=== PATIENT | male | born 1995 | race Caucasian/White ===

== ENCOUNTER 2021-09-21 07:44 | Emergency (ER) | payer MEDICAID ==
[~2021-09-21] VITALS: Ht 185.4 cm; Wt 90.9 kg
[2021-09-21 07:46] VITALS: BP 123/84
[2021-09-21] MEDS ORDERED: NAPR-56 PO (09:33)
[2021-09-21] MEDS ORDERED: ACET-1131 PO (09:33)
== END 2021-09-21 09:48 | disposition home or self-care (01) ==
LOC: ER 07:45
DX: U07.1 COVID-19 (principal); J45.909 Unspecified asthma, uncomplicated; Z88.8 Allergy status to other drugs, medicaments and biological substances
CPT/HCPCS: 87811; 99283